=== PATIENT | male | born 1950 | race Caucasian/White ===

== ENCOUNTER 2019-05-03 08:52 | Day surgery (SDC) | payer MEDICARE ==
[2019-05-01 13:53] VITALS: BP 177/93
[2019-05-01 14:39] LABS: BASOPHILS # (AUTO) 0.04 x10^3/uL (0-0.1); BASOPHILS % (AUTO) 1 % (0-1); EOSINOPHILS # (AUTO) 0.21 x10^3/uL (0-0.4); EOSINOPHILS % (AUTO) 3 % (1-7); LYMPHOCYTES # (AUTO) 2.39 x10^3/uL (1-3.4); LYMPHOCYTES % (AUTO) 30 % (22-44); MD NO; MEAN CORPUSCULAR HEMOGLOBIN 29.8 pg (27.5-34.5); MEAN CORPUSCULAR HGB CONC 32.4 g/dL (33.2-36.2); MEAN CORPUSCULAR VOLUME 92.1 fL (81-97); MEAN PLATELET VOLUME 7.6 fL (7.4-10.4); MONOCYTES # (AUTO) 0.54 x10^3/uL (0.2-0.8); MONOCYTES % (AUTO) 7 % (2-9); NEUTROPHILS # (AUTO) 4.75 x10^3/uL (1.8-6.8); NEUTROPHILS % (AUTO) 60 % (42-75); PLATELET COUNT 235 x10^3/uL (130-400); RED CELL DISTRIBUTION WIDTH 13.9 % (9.4-14.8)
[2019-05-01 14:48] LABS: INTERNATIONAL NORMALIZED RATIO 1.04 (0.93-1.1); PROTHROMBIN TIME 10.9 Seconds (9.6-11.5)
[2019-05-01 14:50] LABS: ALBUMIN 4.2 g/dL (3.4-5.0); ANION GAP 6 mmol/L (5-15); CALCIUM 9.6 mg/dL (8.5-10.1); CHLORIDE 105 mmol/L (98-107)
[2019-05-01 14:53] LABS: ALANINE AMINOTRANSFERASE 61 U/L (12-78); ALKALINE PHOSPHATASE 62 U/L (45-117); BILIRUBIN,TOTAL 0.5 mg/dL (0.2-1.0); CREATININE 0.98 mg/dL (0.7-1.3); TOTAL PROTEIN 8.4 g/dL (6.4-8.2)
[~2019-05-03] VITALS: Ht 180.3 cm; Wt 87.7 kg
[~2019-05-03 08:52] MED LIST: AMLO5TAB10 PO; ATOR10TA9 PO; BUPIVACAINE/PF 0.25% ONE; EPINEPHRINE 1 MG/ML, 1ML ONE; HYDR-3240 PO; LIDOCAINE/PF 0.5% ,50ML ONE; LISI-170 PO; MULT-658 PO; OMEP-110 PO; THROMBIN 5,000 UNIT VIAL TP ONE; TOBRAMYCIN SULFATE 1.2 GM IMP ONE; VANCOMYCIN 1,000 MG ONE; [UNRECOGNIZED DRUG - MIXTURE] PO
[2019-05-03] MEDS ORDERED: LACTATED RINGERS 1,000 ML IV SCH (09:30)
[2019-05-03] MEDS ORDERED: MIDAZOLAM 1 MG/ML, 2ML ONE (10:14)
[2019-05-03] MEDS ORDERED: FENTANYL PF 250 MCG/5ML ONE (10:28)
[2019-05-03] MEDS ORDERED: ACETAMINOPHEN 500 MG TABLET PO ONE (11:30)
[2019-05-03] MEDS ORDERED: OxyconTIN ER 10 MG TAB.ER PO ONE (11:30)
[2019-05-03] MEDS ORDERED: GABAPENTIN 300 MG CAPSULE PO ONE (11:30)
[2019-05-03] MEDS ORDERED: FAMOTIDINE 20 MG TABLET PO ONE (11:30)
[2019-05-03] MEDS ORDERED: CEFAZOLIN 1,000 MG ONE ×2 (11:43)
[2019-05-03] MEDS ORDERED: BUPIVACAINE/PF 0.25% INFIL ONE (12:10)
[2019-05-03] MEDS ORDERED: ROCURONIUM 10MG/ML,5ML ONE (12:29)
[2019-05-03] MEDS ORDERED: PROPOFOL 10 MG/ML, 20ML ONE (12:29)
[2019-05-03] MEDS ORDERED: DEXAMETHASONE 4 MG/ML, 1ML ONE (12:29)
[2019-05-03] MEDS ORDERED: ONDANSETRON 2MG/ML, 2ML ONE (12:29)
[2019-05-03] MEDS ORDERED: FENTANYL PF 100 MCG/2ML IV PRN (12:30)
[2019-05-03] MEDS ORDERED: PROMETHAZINE 25 MG/ML, 1ML IV PRN (12:30)
[2019-05-03] MEDS ORDERED: LABETALOL 5MG/ML, 20ML IV PRN (12:30)
[2019-05-03] MEDS ORDERED: DIAZEPAM 5 MG/ML, 2ML IVPush PRN (12:30)
[2019-05-03] MEDS ORDERED: OXYcodone 5 MG/5 ML ORAL.SOL UDC PO PRN (12:30)
[2019-05-03] MEDS ORDERED: HYDROmorphone 2 MG/ML, 1ML IVPush PRN (12:30)
[2019-05-03] MEDS ORDERED: ONDANSETRON 2MG/ML, 2ML IV PRN (12:30)
[2019-05-03] MEDS ORDERED: hydrALAzine 20 MG/ML, 1ML IV PRN (12:30)
[2019-05-03] MEDS ORDERED: MEPERIDINE/PF 25MG/0.5ML IVPush PRN (12:30)
[2019-05-03] MEDS ORDERED: NEOSTIGMINE 1 MG/ML, 10ML ONE (12:34)
[2019-05-03] MEDS ORDERED: GLYCOPYRROLATE 0.2MG/1ML, 5ML ONE (12:34)
[2019-05-03] MEDS ORDERED: hydrALAzine 20 MG/ML, 1ML ONE (13:15)
[2019-05-03] MEDS ORDERED: HYDROcodone/APAP 10/325 MG TABLET ONE (15:45)
[2019-05-03] MEDS ORDERED: HYDROcodone/APAP 10/325 MG TABLET PO PRN (16:00)
== END 2019-05-03 15:55 | disposition home or self-care (01) ==
LOC: OUT 08:52
PROVIDERS: ATTEND Orthopaedic Surgery Orthopaedic Surgery of the Spine
DX: M51.16 Intervertebral disc disorders with radiculopathy, lumbar region (principal); I10 Essential (primary) hypertension; E78.00 Pure hypercholesterolemia, unspecified; Z79.01 Long term (current) use of anticoagulants; Z79.899 Other long term (current) drug therapy; Z85.828 Personal history of other malignant neoplasm of skin; Z98.52 Vasectomy status; Z82.49 Family history of ischemic heart disease and other diseases of the circulatory system
CPT/HCPCS: 36415; 63030; 71046; 72100; 80053; 85025; 85610; 85730; 93005; J0171; J0690; J1100; J2001; J2250; J2405; J2704; J2710; J3010; J3370; J3490; J7120; J3260